=== PATIENT | female | born 1985 | race Caucasian/White ===

== ENCOUNTER 2022-12-19 10:31 | Emergency (ER) | payer OTHER ==
[~2022-12-19] VITALS: Ht 157.5 cm; Wt 53.0 kg
[2022-12-19] MEDS ORDERED: ACETAMINOPHEN 325MG TABLET PO ONE (10:45)
[2022-12-19 10:52] LABS: BASOPHILS % 0.2 % (0.0-2.0); EOSINOPHILS % 0.6 % (0.0-5.0); HEMATOCRIT. 38.5 % (36.0-48.0); HEMOGLOBIN. 13.3 g/dL (12.0-16.0); LYMPHOCYTES % 8.9 % (20.0-50.0); MEAN CORPUSCULAR HEMOGLOBIN 31.6 pg (28.0-32.0); MEAN CORPUSCULAR VOLUME 91.3 fL (81.0-99.0); MEAN PLATELET VOLUME 8.8 fl (7.4-10.4); MONOCYTES % 6.1 % (2.0-8.0); NEUTROPHILS % 84.2 % (40.0-76.0); PLATELET 211 x1000/uL (130-400); RED BLOOD CELL COUNT 4.22 mill/uL (4.2-5.4); RED CELL DISTRIBUTION WIDTH 12.9 % (11.6-14.6)
[2022-12-19 10:59] LABS: CHLORIDE 107 mEq/L (98-107)
[2022-12-19] MEDS ORDERED: TOPUD PO (12:28)
[2022-12-19 12:42] VITALS: BP 105/69
[2022-12-19] MEDS ORDERED: ACETAMINOPHEN 325MG TABLET PO NR (13:00)
== END 2022-12-19 12:53 | disposition home or self-care (01) ==
LOC: ER 10:31
DX: O26.892 Other specified pregnancy related conditions, second trimester (principal); R55 Syncope and collapse; Z3A.21 21 weeks gestation of pregnancy
CPT/HCPCS: 36415; 76805; 80053; 83880; 84484; 85025; 93005; 99285